=== PATIENT | female | born 2000 ===

== ENCOUNTER 2024-09-28 13:33 | Outpatient (CLI) | payer BC, SELFPAY ==
--- NOTE | 2024-09-28 13:45 | CRLHL7_ITS ---
For Patients: As a result of the Century Cures Act, medical imaging exams and procedure reports are released immediately into your electronic medical record. You may view this report before your referring provider. If you have questions, please contact your health care provider. OBSTETRICAL ULTRASOUND TRANSVAGINAL, 09/28/2024 CLINICAL INDICATION: Dating and viability. LMP: 07/31/2024 PEREZ by LMP: 05/07/2025 Gestational age: 8 weeks 3 days Previous ultrasound: No TECHNIQUE: Real-time hagen-scale imaging of the fetus was performed transvaginal. FINDINGS: CRL: 2.1 cm, 8 weeks 5 days; PEREZ 05/05/2025 heart rate: 171 BPM Gestational sac: 3.6 cm, appears within normal limits Yolk sac: 3.3 mm, appears within normal limits Right ovary: 3.1 x 1.8 x 1.9 cm Left ovary: 3.4 x 2.5 x 2.3 cm IMPRESSION: 1. Single living intrauterine with sonographic gestational age of 8 weeks 5 days and sonographic due date of 05/05/2025. 2. Subchorionic hemorrhage measures 1.6 x 0.9 x 0.8 cm. CLAY ROJAS M.D. Diagnostic Radiologist [email or web address] Transcribed: 4:[address]/Dictated by: Clay Rojas MD @ 09/28/2024 2:53:00 PM (Electronically Signed)
== END 2024-09-28 13:34 | disposition home or self-care (01) ==
LOC: US 13:33
PROVIDERS: Visit Provider Physician Assistant
DX: Z34.91 Encounter for supervision of normal pregnancy, unspecified, first trimester (principal); O20.9 Hemorrhage in early pregnancy, unspecified; Z3A.08 8 weeks gestation of pregnancy
CPT/HCPCS: 76817; 83021; 86703; 86706; 86803; 86850; 86900; 86901; 87086; 87340; 87491; 87591

== ENCOUNTER 2024-09-28 14:36 | Outpatient (CLI) | payer BC, SELFPAY ==
[2024-09-28 21:46] LABS: Chlamydia DNA Amplified* NOT DETECTED (No Detected); GC DNA Amplified* NOT DETECTED (No Detected)
== END 2024-09-28 14:37 | disposition home or self-care (01) ==
PROVIDERS: Visit Provider Registered Nurse
DX: Z34.01 Encounter for supervision of normal first pregnancy, first trimester (principal)
CPT/HCPCS: 83020; 83021; 85660; 86592; 86703; 86704; 86706; 86762; 86787; 86803; 86850; 86900; 86901; 87086; 87340; 87491; 87591

== ENCOUNTER 2024-10-26 11:41 | Outpatient (CLI) | payer BC, SELFPAY | END 2024-10-26 11:42 | disposition home or self-care (01) | LOC: NFLDREF 11:42 | PROVIDERS: Visit Provider Advanced Practice Midwife | DX: Z34.91 Encounter for supervision of normal pregnancy, unspecified, first trimester (principal); Z86.2 Personal history of diseases of the blood and blood-forming organs and certain disorders involving the immune mechanism; Z3A.12 12 weeks gestation of pregnancy | CPT/HCPCS: 82728 ==

== ENCOUNTER 2024-12-21 12:11 | Outpatient (CLI) | payer BC, SELFPAY ==
--- NOTE | 2024-12-21 12:15 | CRLHL7_ITS ---
For Patients: As a result of the Century Cures Act, medical imaging exams and procedure reports are released immediately into your electronic medical record. You may view this report before your referring provider. If you have questions, please contact your health care provider. OBSTETRICAL ULTRASOUND ??? ANATOMY SURVEY, 12/21/2024 INDICATION: anatomy survey. CLINICAL HISTORY: LMP: 07/31/2024 PEREZ by LMP: 05/07/2025 Gestational age: 20 weeks 3 days TECHNIQUE: Real-time hagen-scale transabdominal imaging of the fetus was performed. PREVIOUS ULTRASOUND: 09/28/2024 FINDINGS: position: Vertex Cervix: Visualized Technique: Transabdominal Length of closed cervix: 4.3 cm Placenta position: Posterior Technique: Transabdominal Placenta tip to internal os: 4.9 cm Umbilical cord: 3-vessel cord Placental insertion: Central Amniotic fluid: 2.4 cm SDP (greater than/equal to 2 to less than 8 cm) ANATOMY SURVEY: Observed Structures Cerebellum: Yes; 2.2 cm, 22 weeks 1 day Cisterna magna: Yes; 2.8 mm Nuchal fold: Yes; 3.0 mm Lateral ventricle: Yes; 6.3 mm CSP: Yes Midline falx: Yes Choroid plexus: Yes Spine: Yes Stomach: Yes Abdominal cord insert: Yes Urinary bladder: Yes Kidneys: Yes Diaphragm: Yes Nose/lips: Yes Orbital view: Yes Profile: Yes Upper extremities: Yes Lower extremities: Yes Hands: Yes Feet: Yes 4-chamber heart: Yes LVOT: Yes RVOT: Yes 3VV: Yes 3VTV: Yes BIOMETRY BPD: 4.8 cm, 20 weeks 4 days, 53% HC: 18.2 cm, 20 weeks 4 days, 49% AC: 15.4 cm, 20 weeks 4 days, 49% FL: 3.7 cm, 21 weeks 5 days, 84% FL/AC: 23.98% HC/AC ratio: 1.18 heart rate: 150 bpm age by this ultrasound: 21 weeks 1 day PEREZ by this ultrasound: 05/02/2025 Estimated weight: 394.82 grams (0 pounds 14 ounces) Percentile by PEREZ: 79% IMPRESSION: 1) Sonographic gestational age is 21 weeks 1 day and sonographic due is date 05/02/2025. Sonographic age is 5 days ahead of the clinical age. 2) Estimated weight is 79th percentile. Abdominal circumference is 49th percentile. 3) Normal anatomic survey. CLAY ROJAS M.D. Diagnostic Radiologist [email or web address] Transcribed: 5:[address]/Dictated by: Clay Rojas MD @ 12/21/2024 4:08:00 PM (Electronically Signed)
--- OUTSIDE RECORDS SUMMARY | 2024-12-22 00:46 | XMS_ITS | Clinical Summary ---
Author Organization [facility] Address [address] [place] [address] Care Team Providers Care Fluorescent Lighting Model Maker Name Role Phone Braulio Guevara MD Primary Care Provider [phone] Braulio Guevara MD Unavailable [phone] Toribio Barrera MD Unavailable [phone] Allergies Active Allergy Reactions Criticality Noted Date Comments Azithromycin Rash Low 12/20/2021 Medications LO-ZUMANDIMINE 3-0.02 MG tabletIndications: Surveillance of previously prescribed contraceptive pill Take 1 tablet by mouth daily 84 tablet 4 2 Active albuterol (PROAIR HFA/PROVENTIL HFA/VENTOLIN HFA) 108 (90 Base) MCG/ACT inhaler 1-2 puffs every 6 hours as needed for cough, wheezing or shortness of breath 3 Active Multiple Vitamin (MULTIVITAMIN ADULT PO) Take 2 capsules by mouth 4 times daily Active FERROUS FUMARATE-VITAMIN C PO Take 1 tablet by mouth daily Active Active Problems Problem Noted Date Diagnosed Date Low ferritin 06/13/2023 Iron deficiency 06/13/2023 Immunizations Immunization Administration Dates Next Due TDAP (Adacel,Boostrix) 12/20/2021 Family History Medical History Relation Comments No Known Problems Father No Known Problems Mother Cerebrovascular Disease Paternal Grandfather Relation Status Comments Father Mother Paternal Grandfather Social History Tobacco Use Types Packs/Day Years Used Date Smoking Tobacco: Never Passive Smoke Exposure: Never Smokeless Tobacco: Never Tobacco Cessation:Counseling Given: Not Answered Alcohol Use Standard Drinks/Week Comments Not Currently 0 (1 standard drink = 0.6 oz pure alcohol) occasionally has a 1 drink a month PHQ-2 Answer Date Recorded PHQ-2 Score 0 12/20/2021 Adolescent Education Answer Date Record ed Getting School Help Needed Not on file 03/15 Comments No Sex and Gender Information Value Date Recorded Sex Assigned at Not on file Legal Sex Female 11:07 AM CDT Gender Identity Not on file Sexual Orientation Not on file Last Filed Vital Signs Vital Sign Reading Time Taken Comments Blood Pressure 100/49 10/02/2023 8:43 AM CDT Pulse 78 10/02/2023 8:43 AM CDT Temperature 36.8 C (98.2 F) 10/02/2023 8:43 AM CDT Respiratory Rate 16 10/02/2023 8:43 AM CDT Oxygen Saturation 93% 10/02/2023 8:43 AM CDT Inhaled Oxygen Concentration - - Weight 53.3 kg (117 lb 6.4 oz) 06/13/2023 3:01 P 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 Height 165.1 cm (5' 5) 06/13/2023 3:01 P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 Body Mass Index 19.54 06/13/2023 3:01 P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 Plan of Treatment Health Maintenance Due Date Last Done Comments ADVANCE CARE PLANNING 2000 CHLAMYDIA SCREENING 2000 HIV SCREENING 08/26/2015 HPV VACCINE (1 - 3-dose series) 08/26/2015 HEPATITIS C SCREENING 2018 HEPATITIS B VACCINE (1 of 3 - 19+ 3-dose series) 08/26/2019 DTAP/TDAP/TD VACCINE (2 - Td or Tdap) 01/17/2022 12/20/2021 ANNUAL REVIEW OF HM ORDERS 12/20/2022 12/20/2021 YEARLY PREVENTIVE VISIT 12/20/2022 12/21/19 22, 12/20/2021 COVID-19 VACCINE (1 - 2023-2 5 season) 2024 PHQ-2 (once per calendar year) 2024 12/20/2021 PAP 12/20/2024 12/20/2021 INFLUENZA VACCINE (Season Ended) 2025 ZOSTER VACCINE (1 of 2) 2050 MENINGITIS B VACCINE Aged Out No long er eligible based on patient's age to complete this topic MENINGITIS VACCINE Aged Out No longer eligible based on patient's age to complete this topic PNEUMOCOCCAL VACCINE: PEDIATRICS (0 to 5 YEARS) AND AT-RISK PATIENTS (6 to 49 YEARS) Aged Out No longer eligible b ased on patient's age to complete this topic Procedures Procedure Name Priority Date/Time Associated Diagnosis Comments GYNECOLOGIC CYTOLOGY Routine 12/20/2021 2:19 PM CDT Cervical cancer screening from Last 3 Months or Most Recently Relevant to Health Maintenance Results * Pap Screen only - recommended age 21 - 24 years (12/20/2021 2:19 PM CDT) Interpretation Negative for Intraepithelial Lesion or Malignancy (NILM) 12/26/2021 1:16 PM CDT [facility] at 1316 CDT Comment Papanicolaou Test Limitations: Cervical cytology is a screening test with limited sensitivity, and regular screening is critical for cancer prevention. Pap tests are primarily effective for the diagnosis/prevent ion of squamous cell carcinoma, not adenocarcinoma or other cancers. 12/26/2021 1:16 PM CDT [facility] Specimen Adequacy Satisfactory for evaluation, endocervical/banegas sformation zone component absent 12/26/2021 1:16 PM CDT [facility] Clinical Information none 12/26/2021 1:16 PM CDT [facility] Reflex Testing No 12/26/2021 1:16 PM CDT [facility] Previous Abnormal? No 12/26/2021 1:16 PM CDT [facility] Performing Labs The technical component of this testing was completed at [facility] 12/26/2021 1:16 PM CDT [facility] Brushing CERVIX UTERI STRUCTURE / Unknown Non-blood Collection / Unknown 12/20/2021 2:19 PM CDT 12/20/2021 4:17 PM CDT us Braulio LIZ - DEEPIKA AP Final Resul t [facility] [address] [facility] [address], [address] [place] [address], [facility] [phone] from Last 3 Months or Most Recently Relevant to Health Maintenance Insurance BCBS OUT OF STATE Member Subscriber Plan / Payer (Ef fective 2021-Present) Name:Tiffanie Francois Relation to Subscriber:Spouse Name:KELLY FRANCOIS Date of :1900 (Home) Address: [address] [place] [address] Payer ID:[id number] (NAIC) Type:[employer] Address: [id number] [place] [address] BCBS OUT OF STATE Member Subscriber Plan / Payer (Ef fective 2021-Present) Name:Tiffanie Francois Relation to Subscriber:Spouse Name:KELLY FRANCOIS Date of :1900 (Home) Address: [address] [place] [address] Payer ID:[id number] (NAIC) Type:[employer] Address: [address] [place] [address] Care Teams Fluorescent Lighting Model Maker Relationship Specialty Start Date End Date Braulio Guevara MD [address] [place] [address] PCP - General Family Medicine 12/20/21 Braulio Guevara MD [address] [place] [address] Assigned PCP 11/29/21 Toribio Barrera MD [address] [place] [address] Medical Oncology 05/28/23
--- OUTSIDE RECORDS SUMMARY | 2024-12-22 00:46 | XMS_ITS | Encounter Summary ---
Author Organization [place] Address [address] [place] [address] Care Team Providers Care Help Desk Support Specialist Name Role Phone Braulio Guevara MD Primary Care Provider [phone] Braulio Guevara MD Unavailable [phone] Tonya Martinez PA-C Unavailable [phone] Toribio Barrera MD Unavailable [phone] Toribio Barrera MD Unavailable [phone] Raquel Estes RN Unavailable Unavailable Encounter Details Date Type Department Care Team (Late st Contact Info) Description 06/30/2023 MyC Medical Advice [address] [address] Glenda Cardoso, RN Social History Tobacco Use Types Packs/Day Years Used Date Smoking Tobacco: Never Passive Smoke Exposure: Never Smokeless Tobacco: Never Alcohol Use Standard Drinks/Week Comments Not Currently [...] on file Sexual Orientation Not on file documented as of this encounter Plan of Treatment Not on file documented as of this encounter Visit Diagnoses Not on filedocumented in this encounter Care Teams Help Desk Support Specialist Relationship Specialty Start Date End Date Braulio Guevara MD [address] [place] [address] PCP - General Family Medicine 12/20/21 Braulio Guevara MD [address] [place] [address] Assigned PCP 11/29/21 Tonya Martinez PA-C [address] [place] [address] Assigned Rheumatology Provider 05/03/23 11/11/24 Toribio Barrera MD [address] [place] [address] Medical Oncology 05/28/23 Toribio Barrera MD [address] [place] [address] Assigned Cancer Care Provider 07/17/23 12/12/24 Raquel Estes, ROBE Specialty Rubber Compounder Supervisor Hematology & Oncology 12/30/23 01/22/24 documented as of this encounter
== END 2024-12-21 12:12 | disposition home or self-care (01) ==
LOC: US 12:12
PROVIDERS: Visit Provider Midwife
DX: Z34.92 Encounter for supervision of normal pregnancy, unspecified, second trimester (principal); Z3A.20 20 weeks gestation of pregnancy
CPT/HCPCS: 76805

== ENCOUNTER 2025-02-15 13:25 | Outpatient (CLI) | payer BC, SELFPAY | END 2025-02-15 13:26 | disposition home or self-care (01) | LOC: NFLDREF 02-20 04:46 | PROVIDERS: Visit Provider Midwife | DX: Z34.03 Encounter for supervision of normal first pregnancy, third trimester (principal) | CPT/HCPCS: 86592 ==

== ENCOUNTER 2025-04-12 12:31 | Outpatient (CLI) | payer BC, SELFPAY ==
[2025-04-13 16:38] LABS: Strep B DNA Probe Negative (Negative)
[2025-04-13 21:21] LABS: Strep B Susceptibility Needed? No
== END 2025-04-12 12:32 | disposition home or self-care (01) ==
LOC: NFLDREF 12:35
PROVIDERS: Visit Provider Advanced Practice Midwife
DX: Z34.93 Encounter for supervision of normal pregnancy, unspecified, third trimester (principal)
CPT/HCPCS: 87081; 87653

== ENCOUNTER 2025-05-02 09:05 | Outpatient (CLI) | payer BC, SELFPAY ==
[2025-05-02 09:12] VITALS: BP 124/72; PULSE 77
[2025-05-02 09:43] LABS: Amnisure Rom* Negative
--- NOTE | 2025-05-02 10:20 | PC.OBNST ---
NST Note NST Note Start: 05/02/25 09:08 Freq: ONCE Status: Active Protocol: Document 05/02/25 10:12 [facility] (Rec: 05/02/25 10:20 [facility] [id number]) NST Note 1 Para (# of births) 0 EDC 05/07/25 Gestational Age In 39 Weeks & 2 Days Weeks & Days Patient Presented Leaking fluid with Complaint(s) of Other Complaints amnisure negative Reactive Yes Appropriate for Yes Gestational Age RN J Case RN Date 05/02/25 Reactive Yes Appropriate for Yes Gestational Age RN H Cuddy RN Date 05/02/25 OB NST charge Yes Complete NST Note Yes via Write Note The provider's electronic signature indicates the NST is reactive/appropriate for gestational age. *Note to provider: If an addendum is required, open the patient's chart and click on the note under the Nurse/Allied Health tab.
== END 2025-05-02 10:22 | disposition home or self-care (01) ==
LOC: OB OUT 09:05 → OB 09:07
PROVIDERS: Visit Provider Advanced Practice Midwife
DX: O47.1 False labor at or after 37 completed weeks of gestation (principal); Z3A.39 39 weeks gestation of pregnancy
CPT/HCPCS: 59025; 84112; G0463

== ENCOUNTER 2025-05-03 05:03 | Outpatient (CLI) | payer BC, SELFPAY ==
--- NOTE | 2025-05-03 06:15 | PC.OBNST ---
NST Note NST Note Start: 05/03/25 05:50 Freq: ONCE Status: Active Protocol: Document 05/03/25 05:50 [facility] (Rec: 05/03/25 06:15 [facility] Desktop) NST Note 1 Para (# of births) 0 EDC 05/07/25 Gestational Age In 39 Weeks & 3 Days Weeks & Days Patient Presented Contractions/cramping with Complaint(s) of Reactive Yes Appropriate for Yes Gestational Age RN Reina RN Date 05/03/25 Reactive Yes Appropriate for Yes Gestational Age RN Adam RN Date 05/03/25 OB NST charge Yes Complete NST Note Yes via Write Note The provider's electronic signature indicates the NST is reactive/appropriate for gestational age. *Note to provider: If an addendum is required, open the patient's chart and click on the note under the Nurse/Allied Health tab.
== END 2025-05-03 07:01 | disposition home or self-care (01) ==
LOC: OB OUT 05:04 → OB 05:04
PROVIDERS: Visit Provider Advanced Practice Midwife
DX: O47.1 False labor at or after 37 completed weeks of gestation (principal); Z3A.39 39 weeks gestation of pregnancy
CPT/HCPCS: 59025; G0463

== ENCOUNTER 2025-05-03 18:45 | Inpatient (IN) | payer BC, SELFPAY ==
[2025-05-03] VITALS (8 sets, daily range): BP systolic 103–125; BP diastolic 60–73; PULSE 71–83; RESP 16–18; TEMP 36.4–37.2; O2SAT 97–98; BMI 25.9
--- NOTE | 2025-05-03 21:24 | W.PM.LDBA ---
Subjective History of Present Illness Date Seen: 05/03/25 Narrative: Patient is being admitted to Labor and Delivery for active labor. She is a 24 year old at 39 3/7 weeks gestation. Her full history and physical was dictated by me on 04/19/2025. Please see this for details. No LOF or vaginal bleeding. She reports good movement. She is supported in labor by Darrell and her mother. She desires a waterbirth. Delivery plan: Genetic screen: declined Feeding Plan: Breast? Plan: natural? Waterbirth: Desires AMTSL: expectant management? meds/vaccine: will do Vit K only ? Control PP: ora ring, natural family planning Specific Issues/Plans G 1 P0 : Darrell H&P done for labor admit by Charlie CHACON 04/19/25 # Exercise-induced asthma. Rare albuterol use # Hx anemia with IV infusions. Hgb and ferritin normal at beginning of . Hep B nonimmune. 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 Declines vaccination. Last pap: 12/20/21: NILM TDAP: declined RSV: declined OB - Problem Based A/P Additional Plan (1) Supervision of normal first : Status: Acute Plan ASSESSMENT:?? 24 G1P 0 at 39 3/7 weeks gestation?? complicated by:??none Labor type: Spintaneous, Active labor?? Category 1 FHR pattern.??? Labor complicated by: none?? GBS negative ?? PLAN:?? 1. Routine intrapartum cares as ordered. Continue with expectant management?? 2. Monitoring per policy, intermittent after initial assessment if cat 1?? 3. Planning unmedicated . Desires water . Consent signed. Hep C negative. Candidate for analgesia of choice.??? 4. Patient encouraged to reposition and ambulate to promote physiologic labor and .?? 5. Vertex verified by bedside US? 6. Anticipate ? OB Result Labs Blood Type: AB (+) positive Rubella: immune RPR/VDLR: nonreactive GBS Status: negative HBsAG: negative OB Exam Physical Exam Vital signs: Temp Pulse Resp BP Pulse Ox 99 F 79 16 109/73 98 05/03/25 19:00 05/03/25 21:01 05/03/25 21:01 05/03/25 21:01 05/03/25 18:21 Narrative: Vitals Reviewed Constitutional:? Alert and oriented x3 HEENT:? Normocephalic, atraumatic Neck:? Supple Lungs:? Clear to auscultation bilaterally Heart:? Regular rate and rhythm, no murmur, rub or gallop Abdomen:? Soft, nontender, and gravid. Vertex by Davon's, confirmed with bedside US Extremities:? No edema or erythema Cervix: 5.5 cm/100%/0 station/per nursing assessment NST: 140 bpm/moderate variability/accelerations present/initially there may have been some decelerations variable or early, possible late that resolved spontaneously/contractions regular and every 2-3 min
--- NOTE | 2025-05-03 21:34 | PM.EN ---
Chart Event Note Date Seen: 05/03/25 Chart Event Note: Per nursing exam at 2057-VE 8/100/0 station. Pt getting into birthing tub. Intermittent monitoring has been with normal baseline, no audible decels. Continue expectant management.
[2025-05-04] VITALS (13 sets, daily range): BP systolic 99–136; BP diastolic 54–75; PULSE 73–112; RESP 14–18; TEMP 36.6–37.8; O2SAT 96–98
[2025-05-04] MEDS: LIDOCAINE 1 % PF 30 ML INJECTION (03:26)
--- NOTE | 2025-05-04 03:51 | W.PM.OBVAGDE ---
OB Procedure Vag Delivery Mother Details Mother Details: The patient is a 24 year-old, 1, Para 1, admitted on 05/03/25 at Days gestation. Admission Date: 05/04/25 Additional Details Amniotic Membrane Status: SROM Amniotic Membrane Rupture Date: 05/04/25 Amniotic Membrane Rupture Time: 21:52 Amniotic Membrane Fluid Description: Meconium Stained (meconium staining not noted until 2ndd stage, peds notified and present for ) Analgesia/Anesthesia Type: None Waterbirth: No Pitcoin: No Intrapartal Events: None Labor Onset: 15:00 Complete: 02:04 Pushin:46 (involuntary pushing intermittently as early as 2148) Heart: heart tones during second stage were cat 2 with variables, moderate variability through out, Increasing baseline suspected for a little while but this resolved. Pt was afebrile through out. Good progress made. Delivery Details Delivery Date: 05/04/25 Delivery Time: 03:12 Route of delivery: Gender: Female Viability: Alive; Heart Rate Present Position at Delivery: OA Delivery Details: Patient was admitted for active labor and progressed normally until transition phase. SROM noted at 2152 with clear fluid, but mec noted in the 2nd stage. Peds was noified. Patient was complete at 0204 and pushing at 0146. She ws getting fatigued and disheartened so I requested she get out of the tub for a thorough exam and assessment. Cervical lip reduced with maternal pushing efforts. of a viable female at 0312 in semifowlers. Vertex delivered OA. No nuchal cord or shoulder dystocia. Body delivered easily and without incident caught by her father's hands with assistance. passed to mothers abdomen with a vigorous cry after stimulation. Cord was clamped and cut at > 5 minutes. APGARS were 8 at one minute and 9 at five minutes respectively. Mouth was bulb suctioned. Intact placenta with a 3 vessel cord delivered spontaneously at 0321. Fundus firm. 2nd degree vaginal laceration identified and repaired in typical fashion with a branch to the right labia. QBL 100 cc. Mother and baby stable; mother plans to breastfeed. Infant weight 7#13oz? 1 Minute Interval Total Score: 8 5 Minute Interval Total Score: 9 Additional Details Shoulder Dystocia: No Placenta Delivery Time: 03:21 Placental Delivery Description: Spontaneous Delivery repair: Vicryl Procedure Done: Global Blood Loss: 100 Laceration: Vaginal - 2nd Degree (with right labial extension) Episiotomy Description: None Blood Loss Measurement Type: QBL Bakri Used: No Sponge/Need Count Correct: Yes Cord Vessel Description: 3 Vessels (marginal cord insertion) Event Summary Status: Mother and were stable after delivery. Disposition: floor
[2025-05-04] MEDS: ACETAMINOPHEN 500 MG TABLET 1000 MG PO (05:10)
[2025-05-04] MEDS: DOCUSATE SODIUM 100 MG CAPSULE PO (12:09)
[2025-05-04] MEDS: IBUPROFEN 600 MG TABLET PO (12:09)
[2025-05-05 01:10] VITALS: BP 89/55; RESP 16; TEMP 36.7; O2SAT 97
[2025-05-05] MEDS: IBUPROFEN 600 MG TABLET PO ×2 (03:46→12:44)
[2025-05-05 08:06] VITALS: BP 100/65; PULSE 70; RESP 16; TEMP 36.5; O2SAT 99
--- NOTE | 2025-05-05 08:44 | P.DS_ITS ---
DS: Providers Provider Date Seen: 05/05/25 Date of admission: 05/03/25 18:45 Primary care physician: Not a Local Provider Admitting Clinician: Lynn Barnes CNM Attending Physician on discharge: Thaddeus Rosa CNM Date of Discharge: 05/05/25 DS: Diagnosis Discharge Diagnosis (1) care and examination of lactating mother: Status: Acute (2) (normal spontaneous vaginal delivery): Status: Acute Exam Narrative: Exam Narrative: VSS, afebrile GENERAL APPEARANCE: ?normal affect, alert, no distress MOOD: ?appropriate HEENT: normocephalic, neck supple, full ROM CHEST: ?Symmetrical chest wall movement. ?Normal respiratory effort. ?Clear to auscultation HEART: ?regular rate and rhythm ABDOMEN: ?soft, non-tender. Uterine fundus is firm, 1 below Umbilicus, Midline and is appropriate for the stage of recovery. ?Bowel sounds present. PERINEUM: ?mild edema of the perineum, there is a 2nd degree laceration that is healing well. EXTREMITIES: ?normal and trace edema Const: Vital Signs, click to edit/add: Vital Signs - 24 hr 05/04/25 12:30 05/04/25 17:07 05/04/25 22:03 Temperature 98.7 F 98.3 F 98.1 F Pulse Rate 73 Pulse Rate [Pulse Oximeter] Respiratory Rate 16 14 16 Blood Pressure 99/61 Blood Pressure [Ri ght Arm] 104/67 108/54 L Pulse Oximetry 96 97 Oxygen Delivery Me thod Room Air 05/04/25 22:03 05/05/25 01:10 05/05/25 08:06 Temperature 98.1 F 98.1 F 97.7 F Pulse Rate Pulse Rate [Pulse Oximeter] 70 Respiratory Rate 16 16 16 Blood Pressure Blood Pressure [Ri ght Arm] 99/61 89/55 L 100/65 Pulse Oximetry 97 99 Oxygen Delivery Me thod Room Air Room Air Room Air Documenting provider has reviewed patient's vital signs: yes OB - DS: Summary Hospital Course Hospital Course: Tiffanie is a 24 y.o. who was admitted to L & D for labor. ?She had an uncomplicated NVD.?The patient feels well. ?The pain is well controlled with current medications. ?She has no new complaints. ?She is breast feeding and reports t hings are going well, is sitting up in bed throughout visit.? the patient has done well.? Vitals have been stable.? She has remained afebrile.? Has a good appetite, is tolerating a general diet. ?She is voiding without difficulty.? She is passing gas and has not had a bowel movement.? She is ambulating and denies any dizziness.? Has Small amount of rubra lochia. ?She is undecided on her plan for prevention. Peripartum Data Infant delivery method: Vaginal Laceration description: Vaginal - 2nd Degree Grethel Infant Gender: Female Infant Discharge Plan: Home Status at Discharge Functional status at discharge: independent ambulation Overall status at discharge: patient is progressing back to baseline Time Spent with Patient Time attestation: Total time spent providing and/or coordinating discharge services: Time spent: Less than 30 minutes Discharge Plan Discharge Disposition: Home, Self-Care Date of Admission: 05/03/25 18:45 Attending Provider on Discharge: Thaddeus Rosa Primary Care Provider: Provider,Not a Local Condition: Stable Anticipated Discharge Date/Time: 05/05/25 12:00 Discharge Medications: New acetaminophen 500 mg Tablet 1,000 mg PO Q6H PRNQty: 0 0RF docusate sodium 100 mg Capsule 100 mg PO DAILY Qty: 90 0RF ibuprofen 600 mg Tablet 600 mg PO Q6H PRNQty: 60 0RF Continued [id number] 3 fatty no.1 27-1-300 mg capsule 1 cap PO DAILY magnesium 250 mg tablet 250 mg PO QDAY Discharge Orders: Discharge Order (Routine); Ordered 05/05/25 Ordered By: Thaddeus Rosa Patient Education: OB Over the Counter Medication Information, OB Vaginal/Breast Feeding Additional Instructions: Discharge instructions were reviewed with the patient including signs and symptoms of infection and home going medications Nothing vaginally for 6 weeks: no tampons or intercourse Off Work or School for 6 weeks 2-week visit: discuss infant feeding concerns, review control options and screen for anxiety/depression. 6-week visit for an annual exam. consultation services are available to all mothers and babies for the first year after delivery.? To make an appointment, please call [phone]. Activity Level: Activity as Tolerated Discharge Diet: Regular Follow Up Appointments: [facility] [Provider Group] Forms: MyHealth Info Instructions
[2025-05-05] MEDS: DOCUSATE SODIUM 100 MG CAPSULE PO (09:10)
[2025-05-05] MEDS: BENZOCAINE/MENTHOL SPRAY 85 GM AEROSOL 1 APPLIC TOPICAL (12:44)
== END 2025-05-05 14:04 | disposition home or self-care (01) | DRG 560 ==
LOC: OB OUT 18:45 → OB 18:45
PROVIDERS: Admitting Provider Midwife; Visit Provider Midwife
DX: O77.0 Labor and delivery complicated by meconium in amniotic fluid (principal); O70.1 Second degree perineal laceration during delivery; Z3A.39 39 weeks gestation of pregnancy; Z37.0 Single live birth; O47.1 False labor at or after 37 completed weeks of gestation
CPT/HCPCS: 76815; 86592; G0463; A9270; J2003

== ENCOUNTER 2025-06-14 12:25 | Outpatient (CLI) | payer BC, SELFPAY ==
[2025-06-22 07:46] LABS: Pap Test Screened Manually Done
== END 2025-06-14 12:26 | disposition home or self-care (01) ==
LOC: NFLDREF 12:26
PROVIDERS: Visit Provider Registered Nurse
DX: Z12.4 Encounter for screening for malignant neoplasm of cervix (principal)
CPT/HCPCS: 87624; 87625; 88141; 88142; 88175